=== PATIENT | male | born 1995 | race African-American/Black ===

== ENCOUNTER 2019-10-17 14:33 | Emergency (ER) | payer MEDICAID ==
[2019-10-17 15:09] VITALS: BP 120/67
--- NOTE | 2019-10-17 15:27 | UC ---
Complaint Male HPI - HPI Summary HPI Summary: 24-year-old college student who states that a condom broke last week during sex and he is here for STD testing. He knows no history of the significant other. He is not experiencing any symptoms of illness nor any sores in the genital area. - History of Current Complaint Chief Complaint: [facility] Stated Complaint: PERSONAL Time Seen by Provider: 10/17/19 15:27 Hx Obtained From: Patient Onset/Duration: Other - Patient states condom broke during sex he is not expressing any symptoms of illness or sores. Severity Currently: None Pain Intensity: 0 Location: None Aggravating Factor(s): Nothing Alleviating Factor(s): Nothing Associated Signs And Symptoms: Positive: Negative - Allergies/Home Medications Allergies/Adverse Reactions: Allergies Allergy/AdvReac Type Severity Reaction Status Date / Time No Known Allergies Allergy Verified 10/17/19 15:09 Home Medications: Home Medications NK [No Home Medications Reported] 10/17/19 [History Confirmed 10/17/19] PMH/Surg Hx/FS Hx/Imm Hx Previously Healthy: Yes - Surgical History Surgical History: None - Social History Alcohol Use: None Substance Use Type: None Smoking Status (MU): Never Smoked Tobacco Review of Systems All Other Systems Reviewed And Are Negative: Yes Is Patient Immunocompromised?: No Physical Exam Triage Information Reviewed: Yes Appearance: Well-Appearing, No Pain Distress, Well-Nourished Vital Signs: Initial Vital Signs Temp 98.4 F 10/17/19 15:05 Pulse 67 10/17/19 15:05 Resp 16 10/17/19 15:05 BP 120/67 10/17/19 15:05 Pulse Ox 100 10/17/19 15:05 Vital Signs Reviewed: Yes Musculoskeletal Exam: Normal Neurological Exam: Normal Psychological Exam: Normal Complaint Male Course/Dx - Course Course Of Treatment: This 24-year-old male has absolutely no symptoms of illness, no sores on his penis. He is to continue to use condoms at all times and he was given the name of Zora ross for reproductive health if he has any further concerns or needs any further follow-up. We will call him with the lab reports if they come back positive. Patient is agreeable to this plan of action. - Differential Dx/Diagnosis Provider Diagnosis: Encounter for assessment of STD exposure Discharge ED - Sign-Out/Discharge Documenting (check all that apply): Patient Departure All imaging exams completed and their final reports reviewed: No Studies - Discharge Plan Condition: Good Disposition: HOME Patient Education Materials: Sexually Transmitted Diseases (ED) Referrals: No Primary Care Phys,NOPCP [Primary Care Provider] - VIKY CARO [[employer], [employer], OTHER] - [facility] [Outside] Additional Instructions: Always use condoms, follow-up at the [facility] for any further symptoms. We will call you if anything comes back positive. - Billing Disposition and Condition Condition: GOOD Disposition: Home
[2019-10-18 11:23] LABS: HIV 4th Generation Nonreactive (Nonreactive)
[2019-10-20 11:56] LABS: Chlamydia trachomatis NAA Positive (Negative); Neisseria gonorrhoeae (GC) NAA Negative (Negative)
--- NOTE | 2019-10-20 14:15 | UC ---
- Progress Note Progress Note: Please notify patient that he has CHLAMYDIA take four 250 mg zithromax one time dose today- eRxed abstain from sex for 7 days Course/Dx - Diagnoses Provider Diagnoses: Encounter for assessment of STD exposure Discharge ED - Sign-Out/Discharge Documenting (check all that apply): Post-Discharge Follow Up All imaging exams completed and their final reports reviewed: No Studies - Discharge Plan Condition: Good Disposition: HOME Prescriptions: Azithromycin TAB* [Zithromax TAB*] 1,000 mg PO ONCE #4 tab Patient Education Materials: Sexually Transmitted Diseases (ED) Referrals: [facility] [Outside] No Primary Care Phys,NOPCP [Primary Care Provider] - VIKY CARO [[employer], APPLICATION, OTHER] - Additional Instructions: Always use condoms, follow-up at the [facility] for any further symptoms. We will call you if anything comes back positive. - Billing Disposition and Condition Condition: GOOD Disposition: Home
== END 2019-10-17 15:51 | disposition home or self-care (01) ==
LOC: UCCORT 14:33
DX: Z11.3 Encounter for screening for infections with a predominantly sexual mode of transmission (principal)
CPT/HCPCS: 36415; 86780; 87389; 87491; 87591; 99211; G0463

== ENCOUNTER 2019-12-25 13:32 | Emergency (ER) | payer MEDICAID ==
[2019-12-25 13:52] VITALS: BP 153/76
--- NOTE | 2019-12-25 14:13 | UC ---
Throat Pain/Nasal Raman HPI - HPI Summary HPI Summary: Pt present with sudden onset of ST X 1 day. - History of Current Complaint Chief Complaint: UCGeneralIllness Stated Complaint: ST Hx Obtained From: Patient Onset/Duration: Sudden Onset Severity: Moderate Pain Intensity: 4 Cough: None Associated Signs & Symptoms: Positive: Dysphagia - Epiglottits Risk Factors Epiglottis Risk Factors: Sudden Onset - Allergies/Home Medications Allergies/Adverse Reactions: Allergies Allergy/AdvReac Type Severity Reaction Status Date / Time No Known Allergies Allergy Verified 10/17/19 15:09 Home Medications: Home Medications Penicillin VK 500 MG TAB(NF) [Penicillin VK 500 mg Tab] 500 mg PO Q8H #30 tab [Rx] diphenhydrAMINE HCL [Zzzquil] 50 mg PO BEDTIME PRN 12/25/19 [History Confirmed 12/25/19] PMH/Surg Hx/FS Hx/Imm Hx Previously Healthy: Yes - Surgical History Surgical History: None - Family History Known Family History: Positive: Cardiac Disease - Social History Occupation: Employed Full-time Lives: With Family Alcohol Use: None Substance Use Type: None Smoking Status (MU): Never Smoked Tobacco Have You Smoked in the Last Year: No - Immunization History Vaccination Up to Date: Yes Review of Systems All Other Systems Reviewed And Are Negative: Yes Constitutional: Positive: Chills Skin: Positive: Negative Eyes: Positive: Negative ENT: Positive: Sore Throat Respiratory: Positive: Negative Cardiovascular: Positive: Negative Gastrointestinal: Positive: Negative Genitourinary: Positive: Negative Motor: Positive: Negative Neurovascular: Positive: Negative Musculoskeletal: Positive: Myalgia Neurological/Mental Status: Positive: Negative Psychological: Positive: Negative Is Patient Immunocompromised?: No Physical Exam Triage Information Reviewed: Yes Appearance: Well-Appearing Vital Signs: Initial Vital Signs Temp 99.1 F 12/25/19 13:47 Pulse 80 12/25/19 13:47 Resp 16 12/25/19 13:47 BP 153/76 12/25/19 13:47 Pulse Ox 100 12/25/19 13:47 Vital Signs Reviewed: Yes Eye Exam: Normal ENT: Positive: Tonsillar swelling, Tonsillar exudate Dental Exam: Normal Respiratory: Positive: No respiratory distress Musculoskeletal Exam: Normal Neurological Exam: Normal Psychological Exam: Normal Skin Exam: Normal Throat Pain/Nasal Course/Dx - Differential Dx/Diagnosis Differential Diagnosis/HQI/PQRI: Mononucleosis, Tonsillitis Provider Diagnosis: Strep throat Discharge ED - Sign-Out/Discharge Documenting (check all that apply): Patient Departure All imaging exams completed and their final reports reviewed: No Studies - Discharge Plan Condition: Stable Disposition: HOME Prescriptions: Penicillin VK 500 MG TAB(NF) [Penicillin VK 500 mg Tab] 500 mg PO Q8H #30 tab Patient Education Materials: Strep Throat (ED) Referrals: [facility] [place] [facility] [Outside] - If Needed No Primary Care Phys,NOPCP [Primary Care Provider] - - Billing Disposition and Condition Condition: STABLE Disposition: Home
== END 2019-12-25 14:21 | disposition home or self-care (01) ==
LOC: UCCORT 13:32
DX: J02.0 Streptococcal pharyngitis (principal)
CPT/HCPCS: 87651; 99212; G0463